=== PATIENT | male | born 1960 | race Caucasian/White ===

== ENCOUNTER 2017-02-15 11:09 | Emergency (ER) | payer MEDICARE, OTHER ==
[~2017-02-15] VITALS: Ht 160 cm; Wt 77.5 kg
[2017-02-15 11:10] VITALS: BP 137/78
== END 2017-02-15 12:07 | disposition home or self-care (01) ==
LOC: ED 11:55
DX: Z76.0 Encounter for issue of repeat prescription (principal); I27.2 Other secondary pulmonary hypertension
CPT/HCPCS: 99281